=== PATIENT | male | born 1985 | race Caucasian/White ===

== ENCOUNTER 2024-05-04 20:11 | Emergency (ER) | payer SELFPAY ==
[2024-05-04 20:51] LABS: BASOPHILS ABSOLUTE AUTO 0.01 K/uL (0.00-0.20); BASOPHILS PERCENT AUTO 0.1 % (0.0-2.0); EOSINOPHILS ABSOLUTE AUTO 0.15 K/uL (0.00-0.50); EOSINOPHILS PERCENT AUTO 1.8 % (0.0-5.0); HEMATOCRIT 50.3 % (39.0-49.0); HEMOGLOBIN 16.7 g/dL (13.1-16.8); LYMPHOCYTES ABSOLUTE AUTO 4.98 K/uL (0.50-3.50); LYMPHOCYTES PERCENT AUTO 59.3 % (10.0-50.0); MEAN CORPUSCULAR HEMOGLOBIN 28.3 pg (28.2-33.3); MEAN CORPUSCULAR HGB CONC 33.2 g/dL (31.7-36.0); MEAN CORPUSCULAR VOLUME 85.3 fL (84.0-98.0); MONOCYTES ABSOLUTE AUTO 0.69 K/uL (0.00-1.00); MONOCYTES PERCENT AUTO 8.2 % (2.0-14.0); NEUTROPHILS ABSOLUTE AUTO 2.57 K/uL (1.40-7.00); NEUTROPHILS PERCENT AUTO 30.6 % (45.0-80.0); PLATELET COUNT,PLT 133 K/uL (150-350); RED CELL DISTRIBUTION WIDTH 13.2 % (11.2-14.1); WHITE BLOOD CELL COUNT,WBC 8.4 K/uL (4.0-10.2)
[2024-05-04 21:05] LABS: AMPHETAMINES SCREEN, URINE NEGATIVE (NEGATIVE); BARBITURATE SCREEN,URINE NEGATIVE (NEGATIVE); BENZODIAZEPINES SCREEN,URINE NEGATIVE (NEGATIVE); COCAINE METABOLITES,URINE NEGATIVE (NEGATIVE); EDDP,URINE SCREEN NEGATIVE (NEGATIVE); METHAMPHETAMINES SCREEN, URINE NEGATIVE (NEGATIVE); TCA SCREEN,URINE NEGATIVE (NEGATIVE); THC SCREEN,URINE 50 NG/ML NEGATIVE (NEGATIVE)
[2024-05-04 21:13] LABS: BUPRENORPHINE SCREEN,URINE NEGATIVE (NEGATIVE); OXYCODONE SCREEN,URINE NEGATIVE (NEGATIVE)
[2024-05-04 21:18] LABS: ALANINE AMINOTRANSFERASE,ALT 190 U/L (12-78); ALBUMIN 3.8 g/dL (3.4-5.0); ALKALINE PHOSPHATASE 102 IU/L (46-116); ANION GAP 13.8 meq/L (7-15); ASPARTATE AMNIOTRANSFERASE,AST 71 U/L (15-37); BLOOD UREA NITROGEN,BUN 13 mg/dL (7-18); CALCIUM 9.3 mg/dL (8.5-10.1); CARBON DIOXIDE,CO2 26.6 mmol/L (21.0-32.0); CHLORIDE,CL 99 mmol/L (98-107); CREATININE 1.49 mg/dL (0.51-1.17); ESTIMATED GFR 61 mL/min (>=60); GLUCOSE RANDOM 171 mg/dL (70-99); MAGNESIUM 1.7 mg/dL (1.8-2.4); POTASSIUM,K 3.4 mmol/L (3.5-5.1); SODIUM,NA 136 mmol/L (136-145)
[2024-05-04] MEDS: Potassium Chloride 10 MEQ Tab.ER PO ONE (22:56)
== END 2024-05-04 22:58 | disposition home or self-care (01) ==
LOC: LL.ED 20:11
DX: R00.0 Tachycardia, unspecified (principal); Z91.010 Allergy to peanuts
CPT/HCPCS: 36415; 80053; 80305; 83735; 84443; 84484; 85025; 93005; 99285; A9270; 93010; 99284